=== PATIENT | male | born 1965 ===

== ENCOUNTER 2018-11-27 08:20 | Outpatient (CLI) | payer OTHER | END 2018-11-27 08:23 | disposition home or self-care (01) | LOC: MRI 08:20 | DX: K76.0 Fatty (change of) liver, not elsewhere classified (principal) | CPT/HCPCS: 74182; A9575 ==

== ENCOUNTER 2018-11-27 09:01 | Outpatient (CLI) | payer OTHER | END 2018-11-27 16:15 | disposition home or self-care (01) | LOC: LAB 09:01 | DX: K76.0 Fatty (change of) liver, not elsewhere classified (principal); Z51.81 Encounter for therapeutic drug level monitoring ==